=== PATIENT | female | born 1945 | race Caucasian/White ===

== ENCOUNTER 2019-08-21 03:33 | Observation (INO) | payer MEDICARE, OTHER ==
[~2019-08-21] VITALS: Ht 152.4 cm; Wt 61.2 kg
[2019-08-21] MEDS ORDERED: METFORMIN HCL500 MG PO (03:48)
[2019-08-21] MEDS ORDERED: OMEPRAZOLE 20 M20 M1 PO (03:48)
[2019-08-21 03:50] LABS: URINE BILIRUBIN NEGATIVE (Negative); URINE BLOOD NEGATIVE (Negative); URINE CLARITY CLEAR; URINE COLOR YELLOW; URINE GLUCOSE-RANDOM 1+ (Negative); URINE KETONES NEGATIVE (Negative); URINE LEUKOCYTES-REFLEX NEGATIVE (Negative); URINE NITRITE-REFLEX NEGATIVE (Negative); URINE PROTEIN 2+ (Negative); URINE SPECIFIC GRAVITY 1.025 (1.005-1.030); URINE UROBILINOGEN 0.2 E.U./dl (0.2-1.0)
[2019-08-21 03:52] VITALS: BP 180/93
[2019-08-21 03:56] LABS: MUCUS 4-6 Moderate strn/LPF (None Seen); SQUAMOUS 0-3 Few /LPF (0-3); URINE RBC 0-2 Rare /HPF (0-2); URINE WBC-REFLEX 0-5 Rare /HPF (0-5)
[2019-08-21 03:57] LABS: CRYSTALS None Seen /LPF (None Seen); FINE GRANULAR CASTS 0-3 Few /LPF (None Seen); HYALINE CASTS 0-3 Few /LPF (None Seen)
[2019-08-21 04:10] LABS: ABSOLUTE BASOPHILS 0.1 thou/uL (0.0-0.2); ABSOLUTE EOSINOPHILS 0.1 thou/uL (0.0-0.7); ABSOLUTE LYMPHOCYTES 2.2 thou/uL (0.8-5.3); ABSOLUTE NEUTROPHILS 8.9 thou/uL (1.6-8.1); BASOPHILS 0.4 %; EOSINOPHILS 0.6 %; HEMATOCRIT 38.5 % (37.0-47.0); HEMOGLOBIN 12.8 gm/dL (12.0-15.0); LYMPHOCYTES 17.7 %; MCH 30.3 pg (26.0-34.0); MCHC 33.2 g/dL (28.0-37.0); MCV 91.1 fL (80.0-100.0); MONOCYTES 8.2 %; MPV 7.9 fl. (7.2-11.1); NUCLEATED RBCS 0 /100WBC; PLATELET COUNT* 333 thou/uL (150-400); POLYS 73.1 %; RBC 4.23 mil/uL (4.20-5.00); RDW-CV 14.1 % (10.5-14.5); WBC 12.2 thou/uL (4.0-11.0)
[2019-08-21 04:16] LABS: ANION GAP 14 mmol/L (7-16); BUN 16 mg/dL (7-18); CALCIUM 9.2 mg/dL (8.5-10.1); CHLORIDE 102 mmol/L (98-107); CO2 23 mmol/L (21-32); CREATININE 1.1 mg/dL (0.6-1.3); GLUCOSE 205 mg/dL (70-99); SODIUM 139 mmol/L (136-145)
[2019-08-21 04:25] LABS: ALBUMIN 3.8 g/dL (3.4-5.0); ALKALINE PHOSPHATASE 97 U/L (46-116); LIPASE 297 U/L (73-393); SGOT 11 U/L (15-37); SGPT 21 U/L (30-65); TOTAL BILIRUBIN 0.2 mg/dL (<0.1-1.0); TROPONIN-I LEVEL <0.06 ng/mL (<0.06)
--- NOTE | 2019-08-21 07:02 | NUR ---
THIS NURSE RECEIVED REPORT FROM NOHEMY MICHAEL. THIS NURSE TO ASSUME PT CARE AT THIS TIME.
[2019-08-21 08:00] VITALS: BP 148/96
[2019-08-21 08:15] VITALS: BP 141/78
[2019-08-21 10:13] LABS: CHOLESTEROL 205 mg/dL (<200); HDL CHOLESTEROL 54 mg/dL (>40); LDL CHOLESTEROL 114 mg/dL (<100); MAGNESIUM 1.8 mg/dL (1.8-2.4); TC:HDL 3.8 Ratio (Not establshd); TRIGLYCERIDE 189 mg/dL (<150); VLDL 38 mg/dL (<40)
[2019-08-21 10:22] LABS: SERUM ASSESSMENT Clear
[2019-08-21] MEDS ORDERED: NORCO 5-325 TA1 EAC1 PO (11:40)
[2019-08-21 15:41] VITALS: BP 134/64
--- NOTE | 2019-08-21 17:27 | NUR ---
PT UP IN ROOM WITH STEADY GAIT. TOLERATING PO WELL. PAIN CONTROLLED WITH PO MEDS. IVF INFUSING
[2019-08-22 02:05] LABS: GLYCOHEMOGLOBIN (HGB A1C) 6.6 % (4.8-5.6)
[2019-08-22 04:54] LABS: ABSOLUTE EOSINOPHILS 0.2 thou/uL (0.0-0.7); ABSOLUTE LYMPHOCYTES 1.5 thou/uL (0.8-5.3); ABSOLUTE MONOCYTES 0.9 thou/uL (0.0-1.2); ABSOLUTE NEUTROPHILS 4.4 thou/uL (1.6-8.1); BASOPHILS 0.5 %; EOSINOPHILS 2.4 %; HEMATOCRIT 33.2 % (37.0-47.0); LYMPHOCYTES 22.1 %; MCH 30.6 pg (26.0-34.0); MCHC 33.2 g/dL (28.0-37.0); MCV 92.2 fL (80.0-100.0); MONOCYTES 12.3 %; NUCLEATED RBCS 0 /100WBC; PLATELET COUNT* 260 thou/uL (150-400); POLYS 62.7 %; RDW-CV 14.4 % (10.5-14.5); WBC 6.9 thou/uL (4.0-11.0)
[2019-08-22 05:03] LABS: AMYLASE 69 U/L (25-115); LIPASE 165 U/L (73-393)
[2019-08-22 05:06] LABS: CALCIUM 8.5 mg/dL (8.5-10.1); CREATININE 0.9 mg/dL (0.6-1.3)
--- NOTE | 2019-08-22 06:13 | NUR ---
PATIENT SLEPT MOST OF THE NIGHT. IV FLUIDS CONTINUE TO INFUSE ORDERED. PATIENT HAD NO COMPLAINTS OF PAIN. WILL CONTINUE TO MONITOR.
[2019-08-22 08:56] VITALS: BP 136/69
[2019-08-22] MEDS ORDERED: LIPITOR10 MG PO (10:04)
[2019-08-22] MEDS ORDERED: PANCREAZE DR 11 EAC2 PO (10:04)
[2019-08-22 11:14] VITALS: BP 136/69
[2019-08-22] MEDS ORDERED: HYDROCODON-ACE1 EAC7 PO (11:55)
--- NOTE | 2019-08-22 12:40 | NUR ---
PT ORDERS RECEIVED AND ACKNOWLEDGED. SON PRESENT IN ROOM. PT INDICATES UP AD SAV MOBILITY IN ROOM W/O DME SUPPORT. PT AND SON VOICE NO CONCERNS WITH DISCHARGE TO HOME. PT DEMO INDEP AND STABLE GAIT AND TRANSFERS LEVELS AND STEPS. NO ACUTE SKILLED PT INDICATED AT THIS TIME. WILL DISCHARGE PT ORDERS PER PT REQUEST.
--- NOTE | 2019-08-23 14:48 | EKG ---
[place] [id number] ELECTROCARDIOGRAM REPORT Name: BC PENALOZA Room: [address]#: [id number] Admission: 08/21/19 Attend Phys: Goldie Landaverde MD Discharge: 08/22/19 Date of : 45 Report #: [id number] THIS REPORT FOR: //name// [facility] ED Test Date: 2019-08-21 Test Time: 04:10:28 Pat Name: BC PENALOZA Department: Room: [facility] Gender: Imaging Specialist: GISELLA : 1945 Requested By: Laly Saucedo Order Number: [id number] MD: Clarke Bangura Measurements Intervals [place] Rate: 83 P: 65 NE: 160 QRS: -12 QRSD: 89 T: 34 QT: 397 QTc: 467 Interpretive Statements Sinus rhythm No previous ECG available for comparison Electronically Signed On 08-23-2019 14:48:39 CDT by Clarke Bangura [email or web address] <ELECTRONICALLY SIGNED> By: Clarke Bangura MD, [facility] 08/23/19 1448 0410 0410 Clarke Bangura MD, FACC /EPI
== END 2019-08-22 12:46 | disposition home or self-care (01) ==
LOC: M.ERS 03:33 → M.ORTHSURG 07:17 → M.TBA-ER 07:17 → M.ORTHSURG 08:23
PROVIDERS: Emergency Medicine; Internal Medicine Gastroenterology; ADMIT Family Medicine
DX: K86.1 Other chronic pancreatitis (principal); E11.22 Type 2 diabetes mellitus with diabetic chronic kidney disease; N18.3 Chronic kidney disease, stage 3 (moderate); E78.5 Hyperlipidemia, unspecified; K86.2 Cyst of pancreas; R11.2 Nausea with vomiting, unspecified; Z79.84 Long term (current) use of oral hypoglycemic drugs; Z79.899 Other long term (current) drug therapy